=== PATIENT | male | born 1995 | race Caucasian/White ===

== ENCOUNTER 2016-12-19 10:17 | Outpatient (CLI) | payer OTHER ==
[2014-01-05 18:26] VITALS: BMI 29.5
--- NOTE | 2016-12-19 10:47 | DI ---
EXAM: Three views of the left shoulder. History: Left shoulder pain. Comparison: Left shoulder radiograph 01/05/2014 Findings: No acute fracture or dislocation. Old healed left clavicle fracture with grossly intact hardware. Joint spaces are preserved. Impression: No acute osseous abnormality.
== END 2016-12-19 10:18 | disposition home or self-care (01) ==
LOC: RAD 10:17
PROVIDERS: ATTEND Nurse Practitioner Family
DX: M25.512 Pain in left shoulder (principal)

== ENCOUNTER 2017-08-06 14:14 | Emergency (ER) ==
[2017-08-06] MEDS ORDERED: ZOFRAN 4 MG/2 ML IVP STA (14:24)
[2017-08-06 14:30] VITALS: BP 137/90; TEMP 97.1; BMI 33.0
--- NOTE | 2017-08-06 14:30 | ED.PDOC ---
General ED Provider: Dr. RICK SEE JR Chief Complaint: Abdominal Pain Stated Complaint: upper abd pain one week, sharp pain yesterday 3 days has had vomiting and diarrhea and fever[End]97.1 82 18 97% 137/90 10/11 Time Seen by Physician: 14:27 Mode of Arrival: Walk-In Information Source: Patient Exam Limitations: No limitations Primary Care Provider: MAYELA ASHFORD Nursing and Triage Documentation Reviewed and Agree: No Review of Systems - Review Of Systems Constitutional: Reports: Fever, Malaise, Weakness Eyes: Reports: No symptoms Ears, Nose, Mouth, Throat: Reports: No symptoms Respiratory: Reports: No symptoms Cardiac: Reports: No symptoms GI: Reports: Abdominal pain (crampy epigastric RUQ LUQ), Diarrhea, Nausea, Vomiting : Reports: No symptoms Musculoskeletal: Reports: No symptoms Skin: Reports: No symptoms Neurological: Reports: No symptoms Endocrine: Reports: No symptoms Hematologic/Lymphatic: Reports: No symptoms All Other Systems: Other Past Medical History - Past Medical History Previously Healthy: Yes Endocrine: Reports: None Cardiovascular: Reports: None Respiratory: Reports: None Hematological: Reports: None Gastrointestinal: Reports: None Genitourinary: Reports: None Neuro/Psych: Reports: Other ( concussion) Musculoskeletal: Reports: None Cancer: Reports: None - Surgical History General Surgical History: Reports: Orthopedic (collar bone), Hernia Repair ( herniated scrotum x2, hydrocele concussion) - Family History Family History: Reports: Unknown - Social History Smoking Status: Current every day smoker Hx Substance Use: No Alcohol Screening: None Physical Exam - Physical Exam Appearance: Well-appearing Ill-appearing: Mild Pain Distress: Mild Eyes: ALIREZA, EOMI, Conjunctiva clear ENT: Ears normal, Nose normal, Oropharynx normal Neck: Supple Respiratory: Airway patent, Breath sounds clear, Breath sounds equal, Respirations nonlabored Cardiovascular: RRR, Pulses normal, No rub, No murmur GI/: Soft, No masses, Bowel sounds normal, Tender Musculoskeletal: Normal strength, ROM intact, No edema, No calf tenderness Skin: Warm, Dry, Normal color Neurological: Sensation intact, Motor intact, Reflexes intact, Cranial nerves intact, Alert, Oriented Psychiatric: Affect appropriate, Mood appropriate Critical Care Note - Critical Care Note Total Time (mins): 0 Course - Course Hematology/Chemistry: 08/06/17 14:24 08/06/17 14:35 Orders, Labs, Meds: Lab Review 08/06/17 08/06/17 08/06/17 14:24 14:35 14:35 WBC 5.78 RBC 5.36 Hgb 16.2 Hct 46.7 MCV 87.1 MCH 30.2 MCHC 34.7 RDW Coeff of Ermias 13.1 Plt Count 145 Immature Gran % (Auto) 0.3 Neut % (Auto) 66.8 Lymph % (Auto) 22.3 [place] % (Auto) 9.2 Eos % (Auto) 1.2 Baso % (Auto) 0.2 Immature Gran # (Auto) 0.0 Neut # 3.9 Lymph # 1.3 [place] # 0.5 Eos # 0.1 Baso # 0.0 Sodium 140 Potassium 4.2 Chloride 104 Carbon Dioxide 26 Anion Gap 14.2 BUN 13 Creatinine 1.07 Estimated GFR (MDRD) 86.00 BUN/Creatinine Ratio 12.14 Glucose 95 Calcium 9.6 Total Bilirubin 0.34 AST 36 ALT 46 Alkaline Phosphatase 58 Total Protein 7.6 Albumin 4.2 Globulin 3.4 Albumin/Globulin Ratio 1.24 Amylase 29 Lipase 18 Urine Color Urine Clarity Urine pH Ur Specific [place] Urine Protein Urine Glucose (UA) Urine Ketones Urine Blood Urine Nitrite Urine Bilirubin Urine Urobilinogen Ur Leukocyte Esterase H. pylori IgG Antibody Negative 08/06/17 15:27 WBC RBC Hgb Hct MCV MCH MCHC RDW Coeff of [place]rmias Plt Count Immature Gran % (Auto) Neut % (Auto) Lymph % (Auto) [place] % (Auto) Eos % (Auto) Baso % (Auto) Immature Gran # (Auto) Neut # Lymph # [place] # Eos # Baso # Sodium Potassium Chloride Carbon Dioxide Anion Gap BUN Creatinine Estimated GFR (MDRD) BUN/Creatinine Ratio Glucose Calcium Total Bilirubin AST ALT Alkaline Phosphatase Total Protein Albumin Globulin Albumin/Globulin Ratio Amylase Lipase Urine Color Yellow Urine Clarity Clear Urine pH 7.0 Ur Specific [place] 1.015 Urine Protein Negative Urine Glucose (UA) Negative Urine Ketones Negative Urine Blood Negative Urine Nitrite Negative Urine Bilirubin Negative Urine Urobilinogen 0.2 Ur Leukocyte Esterase Negative H. pylori IgG Antibody Orders Category Date Time Status ED IV/MEDIPORT/POWERPORT .ONCE EMERGENCY 08/06/17 14:24 Active AMYLASE Stat LAB 08/06/17 14:35 Completed CBC W/ AUTO DIFF Stat LAB 08/06/17 14:24 Completed COMPREHENSIVE METABOLIC PANEL Stat LAB 08/06/17 14:35 Completed H. PYLORI SCREEN Stat LAB 08/06/17 14:35 Completed LIPASE Stat LAB 08/06/17 14:35 Completed URINALYSIS C & S IF INDICATED Stat LAB 08/06/17 15:27 Completed 0.9 % Sodium Chloride [Saline Flush] MEDS 08/06/17 14:24 Active 1 syr IVF PRN PRN 0.9 % Sodium Chloride [Saline Flush] MEDS 08/06/17 14:41 Active 1 syr IVF PRN PRN Ondansetron HCl/Pf [Zofran 4 mg/2 ml] MEDS 08/06/17 14:24 Discontinued 4 mg IVP ONCE STA Sodium Chloride 0.9% [Sodium Chloride] 1,000 ml MEDS 08/06/17 14:[address] ABDOMEN/PELVIS WO CONTRAST Stat RADS 08/06/17 14:24 Completed Medications Generic Name Dose Route Start Last Admin Trade Name Freq PRN Reason Stop Dose Admin Sodium Chloride 1 syr 08/06/17 14:24 08/06/17 14:58 Saline Flush IVF 1 syr PRN PRN Administration To flush IV Sodium Chloride 1 syr 08/06/17 14:41 Saline Flush IVF PRN PRN To flush IV Discontinued Medications Generic Name Dose Route Start Last Admin Trade Name Freq PRN Reason Stop Dose Admin Sodium Chloride 1,000 mls @ 1,000 mls/hr 08/06/17 14:41 08/06/17 14:58 Sodium Chloride IV 08/06/17 15:40 1,000 mls/hr BOLUS STA Administration Ondansetron HCl 4 mg 08/06/17 14:24 08/06/17 14:58 Zofran 4 Mg/2 Ml IVP 08/06/17 14:25 4 mg ONCE STA Administration Vital Signs: Temp Pulse Resp BP Pulse Ox 08/06/17 14:15 97.1 F L 82 18 137/90 97 Departure - Departure Time of Disposition: 15:50 Disposition: HOME SELF-CARE Discharge Problem: Abdominal pain, Gastroenteritis and colitis, viral Instructions: Gastroenteritis (ED), Acute Abdominal Pain (ED) Condition: Fair Pt referred to PMD for follow-up: Yes Additional Instructions: clear liquids at least 8 cups a day for three days avoid solids until no vomiting for 8 hours avoid preparing food until no loose stool for 12-24 hours phenergan or zofran for nausea return if worse if fever over 101.0 recheck PMD one week may follow with [facility] Allergies/Adverse Reactions: Allergies morphine Adverse Reaction (Verified 08/06/17 14:20) Home Medications: Ambulatory Orders 1 [No Reported Medications] 08/06/17
[2017-08-06 14:38] LABS: BASOPHILS % (AUTO) 0.2 % (0.0-3.0); EOSINOPHILS # (AUTO) 0.1 K/ul (0.0-0.7); EOSINOPHILS % (AUTO) 1.2 % (0.0-7.0); HEMATOCRIT 46.7 % (42.0-52.0); HEMOGLOBIN 16.2 g/dl (14.0-18.0); IMMATURE GRANULOCYTE % (AUTO) 0.3 % (0.0-5.0); LYMPHOCYTES # (AUTO) 1.3 K/uL (0.60-3.4); LYMPHOCYTES % (AUTO) 22.3 (10.0-50.0); MEAN CORPUSCULAR HEMOGLOBIN 30.2 pg (27.0-31.0); MEAN CORPUSCULAR HGB CONC 34.7 (31.8-35.4); MEAN CORPUSCULAR VOLUME 87.1 fl (80.0-94.0); MONOCYTES # (AUTO) 0.5 K/uL (0.4-2.0); MONOCYTES % (AUTO) 9.2 (0-10); NEUTROPHILS # (AUTO) 3.9 K/ul (2.0-6.9); NEUTROPHILS % (AUTO) 66.8; PLATELET COUNT 145 10^3/uL (140-440); RED BLOOD COUNT 5.36 10^6/ul (4.70-6.10); WHITE BLOOD COUNT 5.78 K/ul (4.2-10.2)
[2017-08-06] MEDS ORDERED: SODIUM CHLORIDE 1,000 ML IV STA (14:41)
[2017-08-06 14:50] LABS: H. PYLORI ANTIBODY NEGATIVE (NEGATIVE); H.PYLORI INTERNAL QC INTERNAL QC VALID
--- NOTE | 2017-08-06 14:54 | CT ---
Exam: CT of the abdomen pelvis without intravenous contrast. Comparison: None available. Reason for exam: Abdominal pain. FINDINGS: No pleural effusion, or focal consolidation in the partially imaged lung bases. Image interpretation is limited by the lack of intravenous contrast administration. No intra-abdominal free air, pelvic free fluid. The liver, gallbladder, spleen, adrenal glands, and pancreas appear grossly unremarkable within the l imitations of a noncontrasted examination. No focal small bowel dilatation or transition point. The appendix is grossly unremarkable. No hydronephrosis, hydroureter, or nephrolithiasis in either kidney. The bladder is grossly unremarkable. No suspicious appearing osteoblastic or osteolytic lesions. Mildly prominent appearing lymph nodes are seen within the abdominal mesentery. Impression: Mildly prominent mesenteric lymph nodes seen throughout the abdomen. Imaging findings can be seen wi th mild enteritis but may also be physiologic. No acute inflammatory changes are seen within the abd omen or pelvis. The appendix is unremarkable.
[2017-08-06 15:01] LABS: ALBUMIN 4.2 g/dL (3.4-5.0); ALBUMIN/GLOBULIN RATIO 1.24; ANION GAP 14.2; BILIRUBIN,TOTAL 0.34 mg/dL (0.00-1.20); BUN/CREATININE RATIO 12.14; CALCIUM 9.6 mg/dL (8.2-10.2); CREATININE 1.07 mg/dL (0.60-1.10); POTASSIUM 4.2 mmol/L (3.5-5.1); TOTAL PROTEIN 7.6 g/dL (6.4-8.2)
[2017-08-06 15:43] LABS: BILIRUBIN,URINE Negative (NEGATIVE); KETONES,URINE Negative (NEGATIVE); LEUKOCYTE ESTERASE ,URINE Negative (NEGATIVE); NITRITE,URINE Negative (NEGATIVE); PROTEIN,URINE Negative (NEGATIVE); URINE, BLOOD Negative (NEGATIVE)
[2017-08-06 15:45] LABS: ADD URINE MICROSCOPIC NO
== END 2017-08-06 16:05 | disposition home or self-care (01) ==
LOC: ED 14:14
DX: A08.4 Viral intestinal infection, unspecified (principal); R10.10 Upper abdominal pain, unspecified; F17.210 Nicotine dependence, cigarettes, uncomplicated
CPT/HCPCS: 36415; 80053; 81001; 82150; 83690; 85025; 86677; 96361; 96374; 99283